=== PATIENT | female | born 1995 | race Caucasian/White ===

== ENCOUNTER 2016-04-21 23:41 | Inpatient (IN) ==
[2016-04-22 00:17] LABS: Amphetamine Screen,Urine Positive ng/mL (Cutoff=1000); Barbiturate Screen,Urine Negative ng/mL (Cutoff=200); Benzodiazepines Screen,Urine Negative ng/mL (Cutoff=200); Cannabinoid Screen,Urine Negative ng/mL (Cutoff = 50); Cocaine Screen,Urine Negative ng/mL (Cutoff= 300); Opiate Screen,Urine Negative ng/mL (Cutoff=300); Phencyclidine Screen,Urine Negative ng/mL (Cutoff=25)
[2016-04-22 00:30] LABS: Basophils % 0.7 %; Eosinophils % 0.2 %; Hematocrit 41.6 % (35.3-44.9); Hemoglobin 13.8 g/dL (11.5-15.4); Immature Granulocytes % 0.7 % (0-4); Lymphocytes # 1.7 K/mcL (0.6-4.6); Lymphocytes % 28.3 %; Mean Corpuscular HGB Conc 33.2 g/dL (31.6-35.5); Mean Corpuscular Hemoglobin 27.3 pg (28.0-33.3); Mean Corpuscular Volume 82.2 fL (83.0-100.0); Mean Platelet Volume 8.8 fL (9.4-12.4); Monocytes # 0.6 K/mcL (0.0-1.3); Monocytes % 9.8 %; Neutrophils # 3.7 K/mcL (1.6-8.9); Platelet Count 414 K/mcL (140-400); Red Blood Count 5.06 M/mcL (3.82-4.97); Red Cell Distribution Width 14.4 % (11.5-14.5); Segmented Neutrophils % 60.3 %
[2016-04-22 00:47] LABS: Bilirubin,Urine Negative (Negative); Blood,Urine Negative (Negative); Clarity,Urine Clear (Clear); Color,Urine Yellow (Yellow); Glucose,Urine (UA) Normal (Normal); Ketones,Urine 15 mg/dL (Negative); Leukocyte Esterase,Urine Negative (Negative); Nitrite,Urine Negative (Negative); PH,Urine 6.5 pH Units (5.0-8.0); Protein,Urine Negative (Neg-Trace); Specific Gravity,Urine 1.025 (1.010-1.025); Urobilinogen,Urine Normal (Normal)
[2016-04-22 00:49] LABS: BUN/Creatinine Ratio 16 (6-26); Blood Urea Nitrogen 12 mg/dL (7-20); Calcium 9.9 mg/dL (8.6-10.8); Carbon Dioxide 22 mEq/L (19-29); Chloride 101 mEq/L (98-109); Glucose 155 mg/dL (70-99); Osmolality,Calculated 285 (280-300); Potassium 3.9 mEq/L (3.5-4.5); Sodium 136 mEq/L (136-145); eGFR For African Americans > 60 (> 60); eGFR For Non-African Americans > 60 (> 60)
[2016-04-22 00:53] LABS: Acetaminophen < 1.0 mcg/mL (10-30); Ethanol < 10 mg/dL (0-10); Salicylate < 5.0 mg/dL (15-30)
[2016-04-22] MEDS ORDERED: Acetaminophen 325 MG TABLET PO ONE (00:56)
--- NOTE | 2016-04-22 01:06 | Emergency Department Note ---
Disposition Clinical Impression: Suicidal ideation Depression Qualifiers: Depression Type: unspecified Qualified Code(s): F32.9 - Major depressive disorder, single episode, unspecified Disposition: Admitted As Inpatient Condition: Good General Adult HPI - General Chief complaint: ED Psychiatric Symptoms Stated complaint: SI Time Seen by Provider: 04/21/16 23:59 Source: patient Limitations: no limitations Nursing Notes Reviewed: Yes Vital Signs Reviewed: Yes - History of Present Illness HPI Narrative: 20 y/o female who has chronic IV/illicit drug use. Long history of depression. Has been feeling suicidal ideation but not plan or attempt. She used drugs ( meth/heroin) yesterday morning and had worsening of her depression. She also complains of a headache. No fever, abd pain, N/V. No weakness Pain Scale: 0 Consistency: constant Improves with: nothing Worsens with: nothing Associated symptoms: Reports: denies other symptoms Treatments Prior to Arrival: none - Related Data Allergies Allergy/AdvReac Type Severity Reaction Status Date / Time cefdinir [From Omnicef] Allergy Hives Verified 04/21/16 23:45 All systems ED: reviewed and negative except as stated. Constitutional: Denies: fever ENT ED: Denies: throat pain Cardiovascular: Denies: chest pain Respiratory: Denies: cough Gastrointestinal: Denies: abdominal pain, nausea, vomiting Integumentary: Denies: rash Neurological: Reports: headache Past Medical History - Past Medical History Medical history: Reports: diabetes, hepatitis - Social History Smoking Status: Current every day smoker Smokeless Tobacco Status: No Alcohol use: Reports: none Drug use: Reports: opiates, methamphetamine Physical Exam - General Limitations: no limitations General appearance: alert, in no apparent distress - Head Head exam: atraumatic - Eye Eye exam: Present: normal appearance, PERRL, EOMI - ENT ENT exam: normal exam, normal oropharynx - Neck Neck exam: Present: normal inspection - Respiratory Respiratory exam: Present: normal lung sounds bilaterally. Absent: respiratory distress - Cardiovascular Cardiovascular exam: Present: regular rate, normal rhythm - Abdominal Exam Abdominal exam: Present: soft, Non-Tender - Extremities Exam Extremities exam: Present: normal inspection - Neurological Exam Neurological exam: Present: alert, oriented X3 - Psychiatric Psychiatric exam: Present: depressed - Skin Skin exam: Present: warm, dry Course Course Narrative: Pupils are equally and dilatated bilaterally. She has an otherwise normal physical exam. Will do CT scan due to headache and hx of IV drug use. - Reevaluation(s) Reevaluation #1: Accepted by [facility] for admission Vital Signs Temperature 97.5 F L 04/21/16 23:42 Pulse Rate 115 04/21/16 23:42 Respiratory Rate 20 04/21/16 23:42 Blood Pressure 150/106 04/21/16 23:42 O2 Sat by Pulse Oximetry 98 04/21/16 23:42 Temperature 0 F L 04/22/16 03:53 Pulse Rate 115 04/21/16 23:42 Respiratory Rate 0 04/22/16 03:53 Blood Pressure 0/0 04/22/16 03:53 O2 Sat by Pulse Oximetry 98 04/21/16 23:42 Oxygen Delivery Oxygen Delivery Room Air Medical Decision Making - Medical Records Medical records reviewed: Yes I reviewed the patient's medical records. - Lab Data Lab results reviewed: Yes I reviewed the patient's lab results. Result diagrams: 04/22/16 00:25 04/22/16 00:25 Lab Results 04/22/16 04/22/16 04/22/16 Range/Units 00:00 00:00 00:00 WBC (4.3-11.1) K/mcL RBC (3.82-4.97) M/mcL Hgb (11.5-15.4) g/dL Hct (35.3-44.9) % MCV (83.0-100.0) fL MCH (28.0-33.3) pg MCHC (31.6-35.5) g/dL RDW (11.5-14.5) % Plt Count (140-400) K/mcL MPV (9.4-12.4) fL Immature Gran % (0-4) % Seg Neutrophils % % Lymphocytes % % Monocytes % % Eosinophils % % Basophils % % Neutrophils # (1.6-8.9) K/mcL Lymphocytes # (0.6-4.6) K/mcL Monocytes # (0.0-1.3) K/mcL Eosinophils # (0.0-0.6) K/mcL Basophils # (0.0-0.2) K/mcL Sodium (136-145) mEq/L Potassium (3.5-4.5) mEq/L Chloride (98-109) mEq/L Carbon Dioxide (19-29) mEq/L BUN (7-20) mg/dL Creatinine (0.57-1.11) mg/dL Est GFR ( Amer) (> 60) Est GFR (Non-Af Amer) (> 60) BUN/Creatinine Ratio (6-26) Glucose (70-99) mg/dL Calculated Osmolality (280-300) Calcium (8.6-10.8) mg/dL TSH (0.350-4.840) mcIU/mL Urine Color Yellow (Yellow) Urine Clarity Clear (Clear) Urine pH 6.5 (5.0-8.0) pH Units Ur Specific [place] 1.025 (1.010-1.025) Urine Protein Negative (Neg-Trace) mg/dL Urine Glucose (UA) Normal (Normal) mg/dL Urine Ketones 15 H (Negative) mg/dL Urine Blood Negative (Negative) Urine Nitrite Negative (Negative) Urine Bilirubin Negative (Negative) Urine Urobilinogen Normal (Normal) mg/dL Ur Leukocyte Esterase Negative (Negative) Urine Test Negative (Negative) Salicylates (15-30) mg/dL Urine Opiates Screen Negative (Ulents=308) ng/mL Acetaminophen (10-30) mcg/mL Ur Barbiturates Screen Negative (Lqsulm=042) ng/mL Ur Phencyclidine Scrn Negative (Cutoff=25) ng/mL Ur Amphetamines Screen Positive H (Sgbdlw=2191) ng/mL U Benzodiazepines Scrn Negative (Gwttnz=647) ng/mL Urine Cocaine Screen Negative (Cutoff= 300) ng/mL U Marijuana (THC) Screen Negative (Cutoff = 50) ng/mL Ethyl Alcohol (0-10) mg/dL 04/22/16 04/22/16 Range/Units 00:25 00:25 WBC 6.1 (4.3-11.1) K/mcL RBC 5.06 H (3.82-4.97) M/mcL Hgb 13.8 (11.5-15.4) g/dL Hct 41.6 (35.3-44.9) % MCV 82.2 L (83.0-100.0) fL MCH 27.3 L (28.0-33.3) pg MCHC 33.2 (31.6-35.5) g/dL RDW 14.4 (11.5-14.5) % Plt Count 414 H (140-400) K/mcL MPV 8.8 L (9.4-12.4) fL Immature Gran % 0.7 (0-4) % Seg Neutrophils % 60.3 % Lymphocytes % 28.3 % Monocytes % 9.8 % Eosinophils % 0.2 % Basophils % 0.7 % Neutrophils # 3.7 (1.6-8.9) K/mcL Lymphocytes # 1.7 (0.6-4.6) K/mcL Monocytes # 0.6 (0.0-1.3) K/mcL Eosinophils # 0.0 (0.0-0.6) K/mcL Basophils # 0.0 (0.0-0.2) K/mcL Sodium 136 (136-145) mEq/L Potassium 3.9 (3.5-4.5) mEq/L Chloride 101 (98-109) mEq/L Carbon Dioxide 22 (19-29) mEq/L BUN 12 (7-20) mg/dL Creatinine 0.73 (0.57-1.11) mg/dL Est GFR ( Amer) > 60 (> 60) Est GFR (Non-Af Amer) > 60 (> 60) BUN/Creatinine Ratio 16 (6-26) Glucose 155 H (70-99) mg/dL Calculated Osmolality 285 (280-300) Calcium 9.9 (8.6-10.8) mg/dL TSH 1.354 (0.350-4.840) mcIU/mL Urine Color (Yellow) Urine Clarity (Clear) Urine pH (5.0-8.0) pH Units Ur Specific [place] (1.010-1.025) Urine Protein (Neg-Trace) mg/dL Urine Glucose (UA) (Normal) mg/dL Urine Ketones (Negative) mg/dL Urine Blood (Negative) Urine Nitrite (Negative) Urine Bilirubin (Negative) Urine Urobilinogen (Normal) mg/dL Ur Leukocyte Esterase (Negative) Urine Test (Negative) Salicylates < 5.0 L (15-30) mg/dL Urine Opiates Screen (Mzjavi=391) ng/mL Acetaminophen < 1.0 L (10-30) mcg/mL Ur Barbiturates Screen (Mnbrje=635) ng/mL Ur Phencyclidine Scrn (Cutoff=25) ng/mL Ur Amphetamines Screen (Gzfxtr=8374) ng/mL U Benzodiazepines Scrn (Fvbanf=642) ng/mL Urine Cocaine Screen (Cutoff= 300) ng/mL U Marijuana (THC) Screen (Cutoff = 50) ng/mL Ethyl Alcohol < 10 (0-10) mg/dL - Radiology Data Radiology results reviewed: Yes I reviewed the patient's radiology results. Attestation Statement - Attestation Attestation: I, Peter Khan MD, personally performed a history and physical exam of the patient and discussed their management with the resident. I reviewed the resident's note and agree with the documented findings, medical decision making , and plan of care. 20-year-old female presents to the emergency department with a complaint of worsening depression and suicidal ideation. She has a long history of depression. She denies any suicide plan. Family also reports that she seems confused. She does have a history of drug abuse and admits to using meth yesterday. Examination Patient Is a Well-Developed Well-Nourished Young Female in No Acute Distress. She Is Alert and Oriented 3. There Is No Cyanosis or Diaphoresis. Pupils Dilated Bilaterally. Breath Sounds Are Clear and Equal Bilaterally. Heart Regular Rate and Rhythm. Abdomen Soft and Nontender with Normal Bowel Sounds. No Gross Focal Neurological Deficits. Labs reviewed. Psychiatry service was consulted and evaluated patient here in the emergency department patient is being admitted to the [facility] psychiatry unit.
[2016-04-22 01:09] LABS: Thyroid Stimulating Hormone 1.354 mcIU/mL (0.350-4.840)
[2016-04-22] MEDS ORDERED: *HR* LORazepam 1 MG TABLET PO ONE (01:34)
[2016-04-22] MEDS ORDERED: Mag Hydrox/Al Hydrox/Simeth 30 ML UDC PO PRN (04:08)
[2016-04-22] MEDS ORDERED: Haloperidol Lactate 5 MG/ML VIAL IM PRN (04:08)
[2016-04-22] MEDS ORDERED: MOM Conc 10 ML UD.LIQ PO PRN (04:08)
[2016-04-22] MEDS ORDERED: hydrOXYzine pamoate 25 MG CAPSULE PO PRN (04:08)
[2016-04-22] MEDS ORDERED: *HR* LORazepam 2 MG/ML VIAL IM PRN ×2 (04:08→04:13)
[2016-04-22] MEDS ORDERED: *HR* LORazepam 1 MG TABLET PO PRN (04:13)
[2016-04-22] MEDS: *HR* LORazepam 1 MG TABLET PO PRN ×2 (04:31→20:34)
[2016-04-22] MEDS: cloNIDine HCl 0.1 MG TABLET PO PRN (04:31)
[2016-04-22] MEDS: Gabapentin 300 MG CAPSULE PO SCH ×4 (04:31→20:35)
[2016-04-22] MEDS: Nicotine 21 MG PATCH.TD24 TD SCH (10:04)
[2016-04-22] MEDS: Vitamin B Complex/Vit C/Vit E 1 EACH TABLET PO SCH (10:04)
--- NOTE | 2016-04-22 11:42 | Psychiatry History & Physical ---
Date of Encounter: 04/22/16 Time of Encounter: 11:39 History of Present Illness Patient Stated Chief Complaint: unable to assess Medicare Admission Attestation: For traditional Medicare patients the provided hospital inpatient services are reasonable and necessary and in the case of services not specified as inpatient -only under 42 CFR 419.22 (n), that they are appropriately provided as inpatient services in accordance 42 CFR 412.3. For Critical Access Hospital the patient may reasonably be expected to be discharged or transferred to a hospital within 96 hours after admission to the Critical Access Hospital. Admitted From: Home Plans for Post Hospital Care: Home History of Present Illness: Ms. Bhatti is a 20 year old female admitted to the behavioral health unit who has chronic intravenous illicit drug use patient also has a long history of depression per ED records patient had been feeling suicidal, and having suicidal thoughts but no plan or attempt she had used drugs which included methamphetamines and heroin yesterday morning and had worsening of her depression secondary to that. On evaluation patient was unable to wake up for evaluation so information was obtained from records and per staff. This morning at 5:30 in the morning patient did receive when necessary medications and had to get an EKG due to having chest pain which was normal. Patient did require Haldol Ativan and clonidine and due to this patient was asleep. Will attempt to reassess patient tomorrow for further information and medication management at this time will maintain withdrawal symptom protocol for patient's withdrawal off opiates as well as methamphetamines. Past Med Surg Social Fam HX - Past Medical History Medical history: diabetes, hepatitis - Past Psychiatric History Psychiatric history: Reports: anxiety, depression Past psychiatric history details: unable to assess due to pts getting prn medications this morning. pt unabel to participate in evauation Family psychiatric history: Unknown Family History of Suicide: Unknown - Past Surgical History Surgical History: no surgical history - Social History Smoking Status: Current every day smoker Smokeless Tobacco Status: No Alcohol use: none Drug use: opiates, methamphetamine Medications & Allergies Doxepin [Sinequan] 25 mg PO HS 04/22/16 [History] HydrOXYzine Pamoate 25 mg PO QID PRN 04/22/16 [History] Metformin [Glucophage] 500 mg PO BID 04/22/16 [History] Naltrexone Microspheres [Vivitrol] 380 mg IJ QMONTH 04/22/16 [History] Allergies cefdinir [From Omnicef] Allergy (Verified 04/22/16 08:07) Hives Review of Systems Constitutional: Reports: weakness Cardiovascular: Reports: chest pain Gastrointestinal: Reports: abdominal pain, nausea, vomiting Psychiatric: Reports: depression, anxiety, abnormal sleep pattern, suicidal ideation, change in appetite, anhedonia, difficulty concentrating, hopelessness , irritability Mental Status Exam Level of alertness: Sedated Patient appearance: Unkempt, Disheveled Intelligence estimate: Average Results - Vital Signs Vital signs: Temp Pulse Resp BP Pulse Ox 98.7 F 124 18 138/97 98 04/22/16 04:16 04/22/16 04:16 04/22/16 04:16 04/22/16 04:16 04/21/16 23:42 - Labs Labs: Laboratory Last Values WBC 6.1 K/mcL (4.3-11.1) 04/22/16 00:25 RBC 5.06 M/mcL (3.82-4.97) H 04/22/16 00:25 Hgb 13.8 g/dL (11.5-15.4) 04/22/16 00:25 Hct 41.6 % (35.3-44.9) 04/22/16 00:25 MCV 82.2 fL (83.0-100.0) L 04/22/16 00:25 MCH 27.3 pg (28.0-33.3) L 04/22/16 00:25 MCHC 33.2 g/dL (31.6-35.5) 04/22/16 00:25 RDW 14.4 % (11.5-14.5) 04/22/16 00:25 Plt Count 414 K/mcL (140-400) H 04/22/16 00:25 MPV 8.8 fL (9.4-12.4) L 04/22/16 00:25 Immature Gran % 0.7 % (0-4) 04/22/16 00:25 Seg Neutrophils % 60.3 % 04/22/16 00:25 Lymphocytes % 28.3 % 04/22/16 00:25 Monocytes % 9.8 % 04/22/16 00:25 Eosinophils % 0.2 % 04/22/16 00:25 Basophils % 0.7 % 04/22/16 00:25 Neutrophils # 3.7 K/mcL (1.6-8.9) 04/22/16 00:25 Lymphocytes # 1.7 K/mcL (0.6-4.6) 04/22/16 00:25 Monocytes # 0.6 K/mcL (0.0-1.3) 04/22/16 00:25 Eosinophils # 0.0 K/mcL (0.0-0.6) 04/22/16 00:25 Basophils # 0.0 K/mcL (0.0-0.2) 04/22/16 00:25 Sodium 136 mEq/L (136-145) 04/22/16 00:25 Potassium 3.9 mEq/L (3.5-4.5) 04/22/16 00:25 Chloride 101 mEq/L (98-109) 04/22/16 00:25 Carbon Dioxide 22 mEq/L (19-29) 04/22/16 00:25 BUN 12 mg/dL (7-20) 04/22/16 00:25 Creatinine 0.73 mg/dL (0.57-1.11) 04/22/16 00:25 Est GFR ( Amer) > 60 (> 60) 04/22/16 00:25 Est GFR (Non-Af Amer) > 60 (> 60) 04/22/16 00:25 BUN/Creatinine Ratio 16 (6-26) 04/22/16 00:25 Glucose 155 mg/dL (70-99) H 04/22/16 00:25 Calculated Osmolality 285 (280-300) 04/22/16 00:25 Calcium 9.9 mg/dL (8.6-10.8) 04/22/16 00:25 TSH 1.354 mcIU/mL (0.350-4.840) 04/22/16 00:25 Urine Color Yellow (Yellow) 04/22/16 00:00 Urine Clarity Clear (Clear) 04/22/16 00:00 Urine pH 6.5 pH Units (5.0-8.0) 04/22/16 00:00 Ur Specific [place] 1.025 (1.010-1.025) 04/22/16 00:00 Urine Protein Negative mg/dL (Neg-Trace) 04/22/16 00:00 Urine Glucose (UA) Normal mg/dL (Normal) 04/22/16 00:00 Urine Ketones 15 mg/dL (Negative) H 04/22/16 00:00 Urine Blood Negative (Negative) 04/22/16 00:00 Urine Nitrite Negative (Negative) 04/22/16 00:00 Urine Bilirubin Negative (Negative) 04/22/16 00:00 Urine Urobilinogen Normal mg/dL (Normal) 04/22/16 00:00 Ur Leukocyte Esterase Negative (Negative) 04/22/16 00:00 Urine Test Negative (Negative) 04/22/16 00:00 Salicylates < 5.0 mg/dL (15-30) L 04/22/16 00:25 Urine Opiates Screen Negative ng/mL (Trgrfk=468) 04/22/16 00:00 Acetaminophen < 1.0 mcg/mL (10-30) L 04/22/16 00:25 Ur Barbiturates Screen Negative ng/mL (Dauxkh=877) 04/22/16 00:00 Ur Phencyclidine Scrn Negative ng/mL (Cutoff=25) 04/22/16 00:00 Ur Amphetamines Screen Positive ng/mL (Rmxwys=6382) H 04/22/16 00:00 U Benzodiazepines Scrn Negative ng/mL (Qvhznf=231) 04/22/16 00:00 Urine Cocaine Screen Negative ng/mL (Cutoff= 300) 04/22/16 00:00 U Marijuana (THC) Screen Negative ng/mL (Cutoff = 50) 04/22/16 00:00 Ethyl Alcohol < 10 mg/dL (0-10) 04/22/16 00:25 Assessment and Plan (1) Mood disorder Current visit: Yes Status: Acute Plan: Admit inpatient for safety and stabilization, Encourage participation in unit milieu, Group Therapy, Monitor sleep, Monitor appetite, Secure weapons Risks, benefits, side effects, alternatives discussed w/pt: Yes Patient agreeable to treatment: Yes Plans for Post Hospital Care: Home Estimated Length of Stay (Days): 5
--- NOTE | 2016-04-22 20:05 | Electrocardiograph Report ---
[address] [address] Test Date: 2016-04-22 Pat Name: Kenzie Bhatti Department: 101 Room: [facility] Gender: F Mill Feeder: : 1995 Requested By: Serene Archuleta Order Number: [id number] Reading MD: Yinka Dsouza Measurements Intervals [place] Rate: 129 P: 78 WV: 145 QRS: 72 QRSD: 75 T: 59 QT: 305 QTc: 381 Interpretive Statements SINUS TACHYCARDIA ABNORMAL RHYTHM ECG Electronically Signed On 04-22-2016 20:04:20 EST by Yinka Dsouza
[2016-04-23] MEDS: Vitamin B Complex/Vit C/Vit E 1 EACH TABLET PO SCH (08:34)
[2016-04-23] MEDS: Nicotine 21 MG PATCH.TD24 TD SCH (08:34)
[2016-04-23] MEDS: Gabapentin 300 MG CAPSULE PO SCH ×3 (08:34→21:58)
--- NOTE | 2016-04-23 10:26 | Psychiatry Progress Note ---
Date of Encounter: 04/23/16 Time of Encounter: 10:24 Subjective Interval history: Attempted to evaluate patient again this morning. The patient was very sedated and asleep. When asked patient if there was any questions or concerns and patient nodded her head no. Per staff patient did wake up for about an hour yesterday and walked around the unit and she did have a visit with her mother. No other issues were addressed will attempt to reevaluate patient tomorrow once patient is more alert. Patient's vitals have been a little increased the patient has been getting appropriate medication for this. Review of Systems Psychiatric: Reports: depression, anxiety, abnormal sleep pattern, suicidal ideation, change in appetite, anhedonia, difficulty concentrating, hopelessness , irritability Objective: Exam Level of alertness: Sedated Patient appearance: Unkempt, Disheveled Behavior: restless, uncooperative Psychomotor activity: Slowed Eye contact: No Eye Contact Results - Vital Signs Vital Signs: Temp Pulse Resp BP Pulse Ox 98.6 F 121 14 108/77 98 04/22/16 20:34 04/22/16 20:34 04/22/16 20:34 04/22/16 20:34 04/21/16 23:42 Assessment and Plan (1) Mood disorder Current visit: Yes Status: Acute Risks, benefits, side effects, alternatives discussed w/pt: Yes Patient agreeable to treatment: Yes Consult Discharge Plan - Plan Referrals: NO,PCP [Primary Care Provider] -
[2016-04-23] MEDS: Nicotine 2 MG GUM BC PRN (20:02)
[2016-04-24] MEDS: Gabapentin 300 MG CAPSULE PO SCH ×3 (09:04→21:14)
[2016-04-24] MEDS: Vitamin B Complex/Vit C/Vit E 1 EACH TABLET PO SCH (09:04)
--- NOTE | 2016-04-24 11:29 | Psychiatry Progress Note ---
Date of Encounter: 04/24/16 Time of Encounter: 11:21 Subjective Interval history: Pt seen and evaluated. Pt reports that she is finally feeling like herself, she had slept for 2 days. she reports being in many rehabs she reports she has had the vivitriol injection which helped keep her sober. Longest period of sobriety 3 years [age] years old, she reports at that time she was not on meds. She endorsed depressive sx's reports feeling depressed, anhedonia, decreased attention and concentration. Endored mood swings, anger outbursts, feels she cant follow the rules. Endorsed anxiety sx's- reports that she has alot of social anxiety Pt reports her most concerning sx's are depression and mood symptoms, she reports she has days where she i sup for a few days and then reprots "i ca sleep for 3 days later". Past meds: prozac, zoloft, celexa, effexor Current meds: doxepin 25 mg qhs for sleep and depression Psych hx: inpatient behavioral health unit 1st time rehabs (dual diagnosis) 5 rehabs SA: denies self harm- cuttting last cut when she was 17 years old Support system: mom, family Review of Systems Cardiovascular: Denies: chest pain, palpitations, dyspnea on exertion, orthopnea Respiratory: Denies: cough, dyspnea, wheezes, hemoptysis, stridor, sputum production Musculoskeletal: Reports: back pain Psychiatric: Reports: depression, anxiety, abnormal sleep pattern, suicidal ideation, change in appetite, anhedonia, difficulty concentrating, hopelessness , irritability, mood swings, panic attacks Objective: Exam Patient orientation: Yes Person, Yes Time, Yes Place, Yes Circumstance Level of alertness: Alert Patient appearance: Disheveled Behavior: cooperative, anxious Psychomotor activity: Normal Eye contact: Maintains Eye Contact Mood description: Depressed, Anxious Affect description: congruent with mood Speech pattern: Normal rate Speech volume: Normal Thought process: Intact Thought content: Yes Intact, No Suicidal ideation, No Homicidal ideation Perceptual disturbances: No Reacting to internal stimuli, No Auditory hallucinations, No Visual hallucinations Judgment: Fair Insight: Partial Results - Vital Signs Vital Signs: Temp Pulse Resp BP Pulse Ox 98.5 F 81 16 119/67 98 04/24/16 09:00 04/24/16 09:00 04/24/16 09:00 04/24/16 09:00 04/21/16 23:42 Assessment and Plan (1) Mood disorder Current visit: Yes Status: Acute Risks, benefits, side effects, alternatives discussed w/pt: Yes Patient agreeable to treatment: Yes (2) Bipolar 1 disorder, depressed, moderate Current visit: Yes Status: Acute Plan: Continue hospitalization, Encourage participation in unit milieu, Group Therapy, Monitor sleep, Monitor appetite, Secure weapons, Family/Supportive other meeting Additional Plan: 04/24: start lamictal 25mg BID for bipolar depression and mood sx's Risks, benefits, side effects, alternatives discussed w/pt: No Patient agreeable to treatment: No Consult Discharge Plan - Plan Referrals: [facility], [facility] [Other] (You have an appointment on 04/29/2016 at 8:30am. During this appointment, you will be reassessed for residential services, and you will also resume outpatient mental health and substance abuse counseling.) Jarett Elena [Non-Partnered Physician] - 04/30/16 1:45 pm (The above appointment is with Jarett Elena. )
[2016-04-24] MEDS: lamoTRIgine 25 MG TABLET PO SCH ×2 (11:42→21:14)
[2016-04-24] MEDS: Nicotine 2 MG GUM BC PRN ×2 (12:31→17:29)
[2016-04-24] MEDS: Ibuprofen 400 MG TABLET PO PRN (21:16)
[2016-04-25] MEDS: Gabapentin 300 MG CAPSULE PO SCH ×3 (08:45→21:19)
[2016-04-25] MEDS: lamoTRIgine 25 MG TABLET PO SCH ×2 (08:45→21:16)
[2016-04-25] MEDS: Vitamin B Complex/Vit C/Vit E 1 EACH TABLET PO SCH (08:45)
[2016-04-25] MEDS: Nicotine 2 MG GUM BC PRN ×4 (09:51→21:19)
[2016-04-25] MEDS ORDERED: NALTREXONE MICROSPHERES 380 MG PO SCH (11:45)
[2016-04-25] MEDS: Ibuprofen 400 MG TABLET PO PRN (16:36)
[2016-04-25] MEDS: cloNIDine HCl 0.1 MG TABLET PO PRN (21:16)
[2016-04-26] MEDS: Gabapentin 300 MG CAPSULE PO SCH ×3 (08:39→21:29)
[2016-04-26] MEDS: Vitamin B Complex/Vit C/Vit E 1 EACH TABLET PO SCH (08:39)
[2016-04-26] MEDS: lamoTRIgine 25 MG TABLET PO SCH ×2 (08:39→21:30)
[2016-04-26] MEDS: Nicotine 2 MG GUM BC PRN ×4 (09:03→21:32)
--- NOTE | 2016-04-26 14:03 | Psychiatry Progress Note ---
Date of Encounter: 04/26/16 Time of Encounter: 13:58 Subjective Interval history: Patient she will follow-up. I reviewed the records and nursing notes and social work notes. Patient denies suicidal ideation and interested in going to rehabilitation but no beds are available. She was started on Lamictal and tolerating it. She started to participate in activities, she was sleeping for the last 2 days after getting off amphetamine. Review of Systems Psychiatric: Reports: depression, anxiety, abnormal sleep pattern, change in appetite, anhedonia, difficulty concentrating, irritability, mood swings, panic attacks Objective: Exam Patient orientation: Yes Person, Yes Time, Yes Place, Yes Circumstance Level of alertness: Alert Patient appearance: Appropriate Behavior: anxious, uncooperative Psychomotor activity: Normal Eye contact: Maintains Eye Contact Mood description: Angry, Anxious, Irritable Affect description: labile, constricted Speech pattern: Normal rate, Repetitive Speech volume: Normal Thought process: Intact Thought content: Yes Intact, No Suicidal ideation, No Homicidal ideation Perceptual disturbances: No Reacting to internal stimuli, No Auditory hallucinations, No Visual hallucinations Judgment: Fair Insight: Partial Results - Vital Signs Vital Signs: Temp Pulse Resp BP Pulse Ox 98 F 77 16 117/75 98 04/26/16 08:35 04/26/16 08:35 04/26/16 08:35 04/26/16 08:35 04/21/16 23:42 Assessment and Plan (1) Methamphetamine dependence, continuous Current visit: Yes Status: Acute Plan: Continue hospitalization, Close observation, Suicide Precautions per unit protocol, Encourage participation in unit milieu, Group Therapy, Monitor sleep, Monitor appetite Risks, benefits, side effects, alternatives discussed w/pt: Yes Patient agreeable to treatment: Yes (2) Heroin addiction Current visit: Yes Status: Acute Plan: Continue hospitalization, Close observation, Suicide Precautions per unit protocol, Encourage participation in unit milieu, Group Therapy, Monitor sleep, Monitor appetite Risks, benefits, side effects, alternatives discussed w/pt: Yes Patient agreeable to treatment: Yes Consult Discharge Plan - Plan Referrals: [facility], [facility] [Other] (You have an appointment on 04/29/2016 at 8:30am. During this appointment, you will be reassessed for residential services, and you will also resume outpatient mental health and substance abuse counseling.) Jarett Elena [Non-Partnered Physician] - 04/30/16 1:45 pm (The above appointment is with Jarett Elena. )
[2016-04-27] MEDS: Vitamin B Complex/Vit C/Vit E 1 EACH TABLET PO SCH (08:25)
[2016-04-27] MEDS: lamoTRIgine 25 MG TABLET PO SCH (08:25)
[2016-04-27] MEDS: Gabapentin 300 MG CAPSULE PO SCH (08:25)
[2016-04-27] MEDS: Nicotine 2 MG GUM BC PRN ×2 (09:08→12:04)
[2016-04-27 10:51] VITALS: BP 117/80
--- NOTE | 2016-04-27 12:53 | Discharge Summary ---
Date of Encounter: 04/27/16 Time of Encounter: 12:42 Diagnosis - Discharge Diagnosis (1) Methamphetamine dependence, continuous Status: Acute (2) Heroin addiction Status: Acute Medications - Discharge Medications Prescriptions: Gabapentin [Neurontin] 600 mg PO TID #90 capsule Lamotrigine [Lamictal] 25 mg PO BID #60 tablet Quetiapine Fumarate [Seroquel] 100 mg PO HS PRN 30 Days PRN Reason: Insomnia HydrOXYzine Pamoate 25 mg PO QID PRN 04/22/16 [History] Metformin [Glucophage] 500 mg PO BID 04/22/16 [History] Naltrexone Microspheres [Vivitrol] 380 mg IJ QMONTH 04/22/16 [History] Naltrexone HCl [Revia] 50 mg PO DAILY 04/25/16 [History] Gabapentin [Neurontin] 600 mg PO TID #90 capsule 04/27/16 [Rx] Lamotrigine [Lamictal] 25 mg PO BID #60 tablet 04/27/16 [Rx] Quetiapine Fumarate [Seroquel] 100 mg PO HS PRN 30 Days 04/27/16 [Rx] Allergies cefdinir [From Omnicef] Allergy (Verified 04/22/16 08:07) Hives Provider Date of admission: 04/22/16 04:44 Primary care physician: PCP NO Discharging clinician: Wilver Tian Assessment and Plan - Patient/Caregiver Discharge Instructions Activity: resume usual activities as tolerated Diet: regular diet - Follow up Plan Follow up with: Cathy, Source [Other] (You have an appointment on 04/29/2016 at 8:30am. During this appointment, you will be reassessed for residential services, and you will also resume outpatient mental health and substance abuse counseling.) Jarett Elena [Non-Partnered Physician] - 04/30/16 1:45 pm (The above appointment is with Jarett Elena. ) Functional capacity at discharge: independent ambulation Overall status at discharge: Stable Disposition: Home, Self-Care Hospital Course Hospital course: Ms. Bhatti is a 20 year old female admitted from the emergency room for evaluation and treatment of polysubstance abuse including amphetamine and opiates in addition to depression and suicidal ideation. For details of admission please see H&P On the units patient was taken off doxepin and was started on gabapentin and Lamictal patient responded well to those medication and reported improved mood and sleep and she was interested and going into rehabilitation program but she has to wait until appointment is available. She participated in some activities but slept most of the time while she is withdrawing from methamphetamine. Prior to discharge she was medically stable and denies suicidal ideation and tolerating her medication. She developed some insight into her chemical dependency and importance of compliance with treatment plan and follow-up. - Time Spent with Patient Total time spent providing and/or coordinating discharge services: Less than 30 minutes Quality - Multiple Antipsychotics Patient discharged on 2 or more antipsychotic medications: No Procedures - Procedures Procedures: Medication Management, Crisis Stabilization, Supportive Therapy, Group Therapy, Psychoeducational Therapy Mental Status Exam - Mental Status Exam Patient orientation: Yes Person, Yes Time, Yes Place, Yes Circumstance Level of alertness: Alert Patient appearance: Appropriate Behavior: anxious, uncooperative Psychomotor activity: Normal Eye contact: Maintains Eye Contact Mood description: Angry, Anxious, Irritable Affect description: labile, constricted Speech pattern: Normal rate, Repetitive Speech Volume: Normal Thought process: Intact Thought Content: Yes Intact, No Suicidal ideation, No Homicidal ideation Perceptual Disturbances: No Reacting to internal stimuli, No Auditory hallucinations, No Visual hallucinations Judgment: Fair Insight: Partial
== END 2016-04-27 14:40 | disposition home or self-care (01) | DRG 773 ==
LOC: 1ANU 23:41 → EMEROO 23:41 → 1ANU 04-22 03:59 → SUATTDRO 04-22 04:44
PROVIDERS: ADMIT Psychiatry & Neurology Psychiatry; ATTEND Psychiatry & Neurology Psychiatry